=== PATIENT | female | born 1975 | race Caucasian/White ===

== ENCOUNTER 2022-08-10 06:20 | Day surgery (SDC) | payer SELFPAY ==
[2022-08-06 14:03] VITALS: BMI 26.5
[2022-08-10] MEDS ORDERED: EPINEPHrine/PF 1 MG/1 ML (1:1,000) AMPULE ONE (07:20)
[2022-08-10] MEDS ORDERED: LIDOCAINE HCL 2% 100 MG/5 ML DISP.SYRIN ONE (07:50)
[2022-08-10] MEDS ORDERED: PROPOFOL 20 ML ONE (07:50)
[2022-08-10] MEDS ORDERED: ceFAZolin SODIUM 1 GM VIAL ONE ×2 (07:50→14:15)
[2022-08-10] MEDS ORDERED: ROCURONIUM BROMIDE 50 MG/5 ML SYRINGE ONE ×2 (07:51→08:59)
[2022-08-10] MEDS ORDERED: MIDAZOLAM HCL 2 MG/2 ML SINGLE DOSE VIAL ONE ×3 (07:53→15:07)
[2022-08-10] MEDS ORDERED: LIDOCAINE HCL 1%, 10 MG/ML (20ML VIAL) ONE (08:25)
[2022-08-10] MEDS ORDERED: HEPARIN NA (PORCINE) 5,000 UNITS/ML 1ML VIAL ONE (08:37)
[2022-08-10] MEDS ORDERED: NITROGLYCERIN 2% OINTMENT - 1GM PACKET TD ONE (12:10)
[2022-08-10] MEDS ORDERED: ONDANSETRON 4 MG/2 ML VIAL ONE (14:42)
[2022-08-10] MEDS ORDERED: SUCCINYLCHOLINE CHLORIDE 200 MG/10 ML SYRINGE ONE (14:44)
[2022-08-10] MEDS ORDERED: ONDANSETRON 4 MG/2 ML VIAL IVPUSH PRN (15:15)
[2022-08-10] MEDS ORDERED: PROMETHAZINE HCL 25 MG/1 ML VIAL IVPB PRN (15:15)
[2022-08-10] MEDS ORDERED: LACTATED RINGERS SOLUTION 1,000 ML IV SCH ×2 (15:15→16:00)
[2022-08-10] MEDS ORDERED: oxyCODONE HCL 5 MG TABLET PO PRN (15:48)
[2022-08-10] MEDS ORDERED: ONDANSETRON 4 MG/2 ML VIAL IVPB PRN (15:48)
[2022-08-10] MEDS ORDERED: FENTANYL CITRATE/PF 50 MCG/ML VIAL ONE (16:15)
[2022-08-10] MEDS: oxyCODONE HCL 5 MG TABLET PO SCH (21:56)
[2022-08-10] MEDS: CEFAZOLIN 1 GM in DEXTROSE 5%-WATER - 50 ML IVPB SCH (21:57)
[2022-08-11] MEDS: oxyCODONE HCL 5 MG TABLET PO SCH ×2 (02:25→08:59)
[2022-08-11] MEDS: CEFAZOLIN 1 GM in DEXTROSE 5%-WATER - 50 ML IVPB SCH (06:35)
[2022-08-11] MEDS ORDERED: ACETAMINOPHEN 1000 MG/100 ML BAG IVPB ONE (07:37)
[2022-08-11] MEDS ORDERED: HEPARIN NA (PORCINE) 5,000 UNITS/ML 1ML VIAL SQ SCH (08:00)
[2022-08-11] MEDS ORDERED: LISINOPRIL 10 MG TABLET PO SCH (10:00)
[2022-08-11 11:07] VITALS: PULSE 104; RESP 18; TEMP 99.2
[2022-08-11 12:06] VITALS: BP 128/53
== END 2022-08-11 12:52 | disposition home or self-care (01) ==
LOC: FASUSAT 06:20 → FM/S 17:37 → FASUSAT 08-11 12:52
PROVIDERS: ATTEND Plastic Surgery
CPT/HCPCS: 81025; 94760; J1644